=== PATIENT | male | born 1990 | race American Indian/Alaskan Native ===

== ENCOUNTER 2017-11-26 14:01 | Emergency (ER) | payer OTHER ==
[2017-11-26 15:18] LABS: Basophils % (Auto) 0.3 % (0.0-1.8); Eosinophils % (Auto) 0.6 % (0.0-4.3); Hematocrit 45.3 % (35.5-45.6); Hemoglobin 15.2 gm/dl (11.8-15.2); Lymphocytes # (Auto) 1.1 K/mm3 (1.2-5.4); Lymphocytes % (Auto) 14.7 % (13.4-35.0); Mean Corpuscular HGB Conc 34 % (32-34); Mean Corpuscular Hemoglobin 31 pg (28-32); Mean Corpuscular Volume 91 fl (84-94); Monocytes # (Auto) 0.5 K/mm3 (0.0-0.8); Monocytes % (Auto) 6.4 % (0.0-7.3); Platelet Count 161 K/mm3 (140-440); Red Blood Count 4.96 M/mm3 (3.65-5.03); Red Cell Distribution Width 13.2 % (13.2-15.2)
--- NOTE | 2017-11-26 15:32 | XRay Report ---
FINAL REPORT EXAM: XR CHEST ROUTINE 2V HISTORY: chest congestion TECHNIQUE: Two view chest PA and lateral PRIORS: None. FINDINGS: Cardiac and mediastinal contours are unremarkable. No focal pulmonary infiltrate is identified. No pleural fluid collection seen. Pulmonary vasculature is unremarkable. IMPRESSION: Negative two-view chest
[2017-11-26 15:38] LABS: Alanine Aminotransferase 19 units/L (7-56); Albumin 4.4 g/dL (3.9-5); BUN/Creatinine Ratio 12; Blood Urea Nitrogen 11 mg/dL (9-20); Hemolysis Index 5
[2017-11-26] MEDS ORDERED: TYLENOL ONE (19:17)
[2017-11-26] MEDS ORDERED: TYLENOL PO ONE ×2 (19:17→22:01)
[2017-11-26] MEDS ORDERED: TORADOL IV ONE (22:01)
[2017-11-26] MEDS ORDERED: NACL 0.9% 1000 ML 1,000 ML IV ONE (22:01)
--- NOTE | 2017-11-26 22:07 | Emergency Department Report ---
- General Chief Complaint: Upper Respiratory Infection Stated Complaint: FLU LIKE SYMPTOMS Time Seen by Provider: 11/26/17 21:57 Source: patient Mode of arrival: Ambulatory Limitations: No Limitations (patient speaks Croatian in no language barriers patient is not altered and there is no physical limitations as well) - History of Present Illness Initial Comments: This is a 27-year-old male Mr. Blaise Merino who reports fever, cough, nasal congestion, since yesterday. Today he had some brief shortness of breath but that resolved when he drinks somewhat warm tea.. Mr. Merino has a history of asthma, but usually this occurs during the summer months when ragweed is most prominent. At this time, Mr. Merino is no longer short of breath but he continues to have runny nose, cough and nasal congestion. He does not know his HIV status. MD Complaint: fever, cough, nasal congestion -: days(s) Severity: moderate (1) Context: sick contacts (at work to multiple people sick), recent travel (no recent travel) Associated Symptoms: fever, chills, rhinorrhea, nasal congestion, cough, shortness of breath - Related Data Previous Rx's Medication Instructions Recorded Last Taken Type ALBUTEROL Inhaler [Proair] 2 puff IH QID PRN #1 inhalation 11/26/17 Unknown Rx Ibuprofen [Motrin] 800 mg PO Q8HR PRN #14 tablet 11/26/17 Unknown Rx Oseltamivir [Tamiflu] 75 mg PO BID #10 cap 11/26/17 Unknown Rx Allergies Allergy/AdvReac Type Severity Reaction Status Date / Time No Known Allergies Allergy Verified 11/26/17 14:15 ED Review of Systems ROS: Stated complaint: FLU LIKE SYMPTOMS Other details as noted in HPI Constitutional: chills, fever Eyes: denies: eye pain, eye discharge, vision change ENT: denies: ear pain, throat pain Respiratory: cough, shortness of breath. denies: wheezing Cardiovascular: chest pain. denies: palpitations Endocrine: no symptoms reported Gastrointestinal: denies: abdominal pain, nausea, diarrhea Genitourinary: denies: urgency, dysuria Musculoskeletal: arthralgia. denies: back pain, joint swelling Skin: denies: rash, lesions Neurological: denies: headache, weakness, paresthesias Psychiatric: denies: anxiety, depression Hematological/Lymphatic: denies: easy bleeding, easy bruising ED Past Medical Hx - Past Medical History Previous Medical History?: Yes Hx Asthma: Yes - Surgical History Past Surgical History?: No - Social History Smoking Status: Never Smoker Substance Use Type: None - Medications Home Medications: Home Medications Medication Instructions Recorded Confirmed Last Taken Type ALBUTEROL Inhaler [Proair] 2 puff IH QID PRN #1 inhalation 11/26/17 Unknown Rx Ibuprofen [Motrin] 800 mg PO Q8HR PRN #14 tablet 11/26/17 Unknown Rx Oseltamivir [Tamiflu] 75 mg PO BID #10 cap 11/26/17 Unknown Rx ED Physical Exam - General Limitations: No Limitations (no language barrier no altered mental status) General appearance: alert, in no apparent distress - Head Head exam: Present: atraumatic, normocephalic - Eye Eye exam: Present: EOMI - ENT ENT exam: Present: mucous membranes moist - Neck Neck exam: Present: normal inspection, full ROM. Absent: tenderness, meningismus - Respiratory Respiratory exam: Present: normal lung sounds bilaterally. Absent: respiratory distress, wheezes, rales - Cardiovascular Cardiovascular Exam: Present: regular rate, normal rhythm - GI/Abdominal GI/Abdominal exam: Present: soft. Absent: tenderness - Rectal Rectal exam: Present: deferred - Extremities Exam Extremities exam: Present: full ROM - Back Exam Back exam: Present: normal inspection, full ROM - Neurological Exam Neurological exam: Present: alert, oriented X3, CN II-XII intact - Psychiatric Psychiatric exam: Present: normal affect, normal mood - Skin Skin exam: Present: warm, dry, intact, normal color, rash ED Course Vital Signs 11/26/17 11/26/17 11/26/17 14:15 19:17 22:40 Temperature 101.2 F H 101 F H Pulse Rate 104 H 102 H Respiratory 16 20 18 Rate Blood Pressure 133/68 Blood Pressure 145/91 [Right] O2 Sat by Pulse 95 99 Oximetry ED Medical Decision Making - Lab Data Result diagrams: 11/26/17 14:51 11/26/17 14:51 - Radiology Data Radiology results: report reviewed (chest x-ray: Negative for any acute findings ) Critical care attestation.: If time is entered above; I have spent that time in minutes in the direct care of this critically ill patient, excluding procedure time. ED Disposition Clinical Impression: Viral syndrome, Influenza A Fever Qualifiers: Fever type: unspecified Qualified Code(s): R50.9 - Fever, unspecified Disposition: DC TO HOME OR SELFCARE Is pt being admited?: No Does the pt Need Aspirin: No Condition: Stable Instructions: Upper Respiratory Infection (ED), Viral Syndrome (ED) Additional Instructions: Please return to the emergency department if her symptoms get worse, otherwise follow up with her doctor in 2 days. Prescriptions: ALBUTEROL Inhaler [Proair] 2 puff IH QID PRN #1 inhalation PRN Reason: Shortness Of Breath Ibuprofen [Motrin] 800 mg PO Q8HR PRN #14 tablet PRN Reason: Pain Oseltamivir [Tamiflu] 75 mg PO BID #10 cap Referrals: PRIMARY CARE, [Primary Care Provider] - 3-5 Days [facility] [place]Outside] - 3-5 Days [facility] [Outside] - 3-5 Days Time of Disposition: 23:37
[2017-11-27 03:33] VITALS: BP 128/76
== END 2017-11-27 00:10 | disposition home or self-care (01) ==
LOC: ED 14:01
DX: J10.1 Influenza due to other identified influenza virus with other respiratory manifestations (principal); B34.9 Viral infection, unspecified; J45.909 Unspecified asthma, uncomplicated
CPT/HCPCS: 36415; 71046; 80053; 85025; 87400; 96361; 96374; 99284; J1885; J7030